=== PATIENT | male | born 1980 | race African-American/Black ===

== ENCOUNTER 2019-12-21 09:21 | Outpatient (CLI) | payer OTHER | END 2019-12-21 23:59 | disposition home or self-care (01) | LOC: RAD 09:21 → EDBD 09:30 → RAD 23:59 | PROVIDERS: ATTEND Family Medicine Adult Medicine | DX: S02.19XA Other fracture of base of skull, initial encounter for closed fracture (principal); J32.9 Chronic sinusitis, unspecified; J32.8 Other chronic sinusitis; J33.8 Other polyp of sinus; X58.XXXA Exposure to other specified factors, initial encounter; Y93.89 Activity, other specified; Y92.89 Other specified places as the place of occurrence of the external cause; Y99.8 Other external cause status | CPT/HCPCS: 70486 ==

== ENCOUNTER 2021-01-15 08:32 | Outpatient (CLI) | payer OTHER | END 2021-01-15 23:59 | disposition home or self-care (01) | LOC: RAD 08:32 | PROVIDERS: ATTEND Family Medicine Adult Medicine | DX: J32.4 Chronic pansinusitis (principal); J32.0 Chronic maxillary sinusitis | CPT/HCPCS: 70486 ==